=== PATIENT | female | born 1995 | race Caucasian/White ===

== ENCOUNTER 2018-09-29 11:16 | Outpatient (CLI) | payer OTHER ==
[2018-09-29 12:15] LABS: ADD MAN DIFF? NO
[2018-09-29 12:17] LABS: WHITE BLOOD COUNT 8.1 10^3/ul (4.8-10.8)
[2018-09-29 12:17] LABS: BASOPHILS % 0.1 % (0.0-2.0); EOSINOPHILS # 0.4 10^3/ul (0.0-0.5); EOSINOPHILS % 4.4 % (0.0-7.0); HEMATOCRIT 35.1 % (37.0-47.0); HEMOGLOBIN 11.9 g/dl (12.0-16.0); LYMPHOCYTES # 1.9 10^3/ul (0.8-2.9); LYMPHOCYTES % 23.1 % (15.0-51.0); MEAN CORPUSCULAR HEMOGLOBIN 28.5 pg (29.0-33.0); MEAN CORPUSCULAR HGB CONC 33.9 g/dl (32.0-37.0); MEAN PLATELET VOLUME 10.8 fl (7.4-10.4); MONOCYTE # 0.6 10^3/ul (0.3-0.9); MONOCYTES % 7.2 % (0.0-11.0); NEUTROPHIL # 5.3 10^3/ul (1.6-7.5); NEUTROPHILS % 64.7 % (39.0-77.0); PLATELET COUNT 269 10^3/UL (140-415); RED BLOOD COUNT 4.18 10^6/ul (4.20-5.40); RED CELL DISTRIBUTION WIDTH 13.4 % (11.5-14.5)
[2018-09-29 12:38] LABS: ALANINE AMINOTRANSFERASE 11 IU/L (13-69); ALBUMIN 3.4 g/dl (3.3-4.9); ALBUMIN/GLOBULIN RATIO 1.06; ALKALINE PHOSPHATASE 166 IU/L (42-121); ANION GAP 10 (5-13); ASPARTATE AMINO TRANSFERASE 17 IU/L (15-46); BILIRUBIN,INDIRECT 0.1 mg/dl (0-1.1); BILIRUBIN,TOTAL 0.1 mg/dl (0.2-1.3); BLOOD UREA NITROGEN 6 mg/dl (7-20); CALCIUM 9.3 mg/dl (8.4-10.2); CARBON DIOXIDE 20 mmol/L (21-31); CHLORIDE 109 mmol/L (97-110); Estimated GFR > 60 mL/min (>60); GLUCOSE 101 mg/dl (70-220); POTASSIUM 3.7 mmol/L (3.5-5.1); SODIUM 139 mmol/L (135-144); TOTAL PROTEIN 6.6 g/dl (6.1-8.1)
[2018-09-29 12:45] LABS: INR 0.85; PARTIAL THROMBOPLASTIN TIME 27.4 Sec (23.0-35.0); PROTIME 11.7 Sec (11.9-14.9); PT RATIO 0.9
[2018-09-29 12:46] LABS: ADD UMIC NO; UR ASCORBIC ACID NEGATIVE (NEGATIVE); UR BILIRUBIN (Dip) NEGATIVE (NEGATIVE); UR BLOOD (Dip) NEGATIVE (NEGATIVE); UR CLARITY CLEAR (CLEAR); UR COLOR COLORLESS (YELLOW); UR GLUCOSE (Dip) NEGATIVE (NEGATIVE); UR KETONES (Dip) NEGATIVE (NEGATIVE); UR LEUKOCYTE ESTERASE (Dip) NEGATIVE Leu/ul (NEGATIVE); UR NITRITE (Dip) NEGATIVE (NEGATIVE); UR SPECIFIC GRAVITY (Dip) 1.001 (1.003-1.030); UR TOTAL PROTEIN (Dip) NEGATIVE (NEGATIVE); UR UROBILINOGEN (Dip) NEGATIVE (NEGATIVE)
== END 2018-09-29 13:25 | disposition home or self-care (01) ==
LOC: OBT 11:16 → L-D 11:17 → OBT 13:25
DX: O13.3 Gestational [pregnancy-induced] hypertension without significant proteinuria, third trimester (principal); O36.8130 Decreased fetal movements, third trimester, not applicable or unspecified; Z3A.35 35 weeks gestation of pregnancy
CPT/HCPCS: 76818; 80053; 81003; 84560; 85025; 85384; 85610; 85730

== ENCOUNTER 2018-10-12 16:05 | Inpatient (IN) | payer OTHER ==
[2018-10-12 17:28] LABS: ADD MAN DIFF? NO
[2018-10-12 17:30] LABS: BASOPHILS % 0.2 % (0.0-2.0); EOSINOPHILS # 0.2 10^3/ul (0.0-0.5); HEMATOCRIT 35.7 % (37.0-47.0); HEMOGLOBIN 11.6 g/dl (12.0-16.0); LYMPHOCYTES % 22.4 % (15.0-51.0); MEAN CORPUSCULAR HGB CONC 32.5 g/dl (32.0-37.0); MEAN PLATELET VOLUME 11.1 fl (7.4-10.4); MONOCYTE # 0.7 10^3/ul (0.3-0.9); MONOCYTES % 7.6 % (0.0-11.0); NEUTROPHIL # 5.9 10^3/ul (1.6-7.5); NEUTROPHILS % 67.3 % (39.0-77.0); PLATELET COUNT 244 10^3/UL (140-415); RED BLOOD COUNT 4.15 10^6/ul (4.20-5.40); RED CELL DISTRIBUTION WIDTH 13.7 % (11.5-14.5)
[2018-10-12 17:30] LABS: WHITE BLOOD COUNT 8.8 10^3/ul (4.8-10.8)
[2018-10-12 17:47] LABS: ALANINE AMINOTRANSFERASE < 6 IU/L (13-69); ALBUMIN 3.6 g/dl (3.3-4.9); ALBUMIN/GLOBULIN RATIO 1.09; ALKALINE PHOSPHATASE 180 IU/L (42-121); ANION GAP 14 (5-13); ASPARTATE AMINO TRANSFERASE 16 IU/L (15-46); BILIRUBIN,INDIRECT 0.1 mg/dl (0-1.1); BILIRUBIN,TOTAL 0.1 mg/dl (0.2-1.3); BLOOD UREA NITROGEN 8 mg/dl (7-20); CALCIUM 9.1 mg/dl (8.4-10.2); CARBON DIOXIDE 20 mmol/L (21-31); CHLORIDE 105 mmol/L (97-110); CREATININE 0.48 mg/dl (0.44-1.00); Estimated GFR > 60 mL/min (>60); GLUCOSE 100 mg/dl (70-220); POTASSIUM 3.8 mmol/L (3.5-5.1); SODIUM 139 mmol/L (135-144); TOTAL PROTEIN 6.9 g/dl (6.1-8.1); URIC ACID 4.2 mg/dl (3.1-7.9)
[2018-10-12 17:49] LABS: INR 0.78; PT RATIO 0.9
[2018-10-12 17:50] LABS: PARTIAL THROMBOPLASTIN TIME 24.1 Sec (23.0-35.0)
[2018-10-12 17:59] LABS: ADD UMIC NO; UR ASCORBIC ACID NEGATIVE (NEGATIVE); UR BILIRUBIN (Dip) NEGATIVE (NEGATIVE); UR BLOOD (Dip) NEGATIVE (NEGATIVE); UR CLARITY CLEAR (CLEAR); UR COLOR YELLOW (YELLOW); UR GLUCOSE (Dip) NEGATIVE (NEGATIVE); UR KETONES (Dip) NEGATIVE (NEGATIVE); UR LEUKOCYTE ESTERASE (Dip) NEGATIVE Leu/ul (NEGATIVE); UR NITRITE (Dip) NEGATIVE (NEGATIVE); UR SPECIFIC GRAVITY (Dip) 1.009 (1.003-1.030); UR TOTAL PROTEIN (Dip) NEGATIVE (NEGATIVE); UR UROBILINOGEN (Dip) NEGATIVE (NEGATIVE)
[2018-10-12] MEDS ORDERED: CARBOPROST 250 MCG INJ IM (20:30)
[2018-10-12] MEDS ORDERED: MISOPROSTOL 50 MCG CAPSULE VAG (20:30)
[2018-10-12] MEDS ORDERED: IBUPROFEN 600 MG TAB PO (20:30)
[2018-10-12] MEDS ORDERED: MISOPROSTOL 200 MCG TAB PR (20:30)
[2018-10-12] MEDS ORDERED: OXYTOCIN 30 UNITS/LR 500 ML IV ×2 (20:30)
[2018-10-12] MEDS ORDERED: METHYLERGONOVINE 0.2 MG INJ IM (20:30)
[2018-10-12] MEDS ORDERED: BUTORPHANOL 2 MG INJ IV (20:30)
[2018-10-12] MEDS: LACTATED RINGER'S 1,000 ML IV (20:45)
[2018-10-12 21:11] LABS: HEPATITIS B SURFACE ANTIGEN NEGATIVE (NEGATIVE)
[2018-10-13] MEDS: MISOPROSTOL 50 MCG CAPSULE PO ×5 (00:19→20:31)
[2018-10-13] MEDS: AMPICILLIN 2 GM/NS (PMX) 100 ML IV (00:22)
[2018-10-13] MEDS ORDERED: AMPICILLIN 1 GM/NS (PMX) 50 ML IV (00:30)
[2018-10-13] MEDS: AMPICILLIN 1 GM/NS (PMX) 50 ML IV ×5 (04:28→20:31)
[2018-10-13] MEDS: LACTATED RINGER'S 1,000 ML IV ×2 (06:27→15:46)
[2018-10-13 22:08] LABS: RAPID PLASMA REAGIN NONREACTIVE (NR)
[2018-10-14] MEDS: AMPICILLIN 1 GM/NS (PMX) 50 ML IV ×6 (00:27→20:54)
[2018-10-14] MEDS: LACTATED RINGER'S 1,000 ML IV ×5 (00:27→20:25)
[2018-10-14] MEDS: MISOPROSTOL 50 MCG CAPSULE PO (00:27)
[2018-10-14] MEDS: OXYTOCIN 30 UNITS/LR 500 ML IV (08:47)
[2018-10-14] MEDS ORDERED: ROPIVACAINE 0.2% 100 ML (21:31)
[2018-10-15] MEDS: LACTATED RINGER'S 1,000 ML IV ×2 (00:26→06:02)
[2018-10-15] MEDS: AMPICILLIN 1 GM/NS (PMX) 50 ML IV ×3 (00:26→08:16)
[2018-10-15] MEDS: ROPIVACAINE 0.2% 100 ML INJ EPI (04:43)
[2018-10-15] MEDS: GENTAMICIN 120 MG/NS (PMX) 100 ML IVPB ×2 (09:56→10:00)
[2018-10-15] MEDS: OXYTOCIN 30 UNITS/LR 500 ML IV ×2 (10:15→13:41)
[2018-10-15] MEDS ORDERED: DIBUCAINE 1% 30 GM OINT TOP (11:00)
[2018-10-15] MEDS ORDERED: ONDANSETRON 4 MG INJ IV (11:00)
[2018-10-15] MEDS ORDERED: CARBOPROST 250 MCG INJ IM (11:00)
[2018-10-15] MEDS ORDERED: METHYLERGONOVINE 0.2 MG INJ IM (11:00)
[2018-10-15] MEDS ORDERED: OXYTOCIN 30 UNITS/LR 500 ML IV (11:00)
[2018-10-15] MEDS ORDERED: MISOPROSTOL 200 MCG TAB PR (11:00)
[2018-10-15] MEDS ORDERED: ACETAMINOPHEN 325 MG TAB PO (11:00)
[2018-10-15] MEDS ORDERED: MAGNESIUM HYDROXIDE 30ML CUP PO (11:00)
[2018-10-15] MEDS: LIDOCAINE 1% (MPF) 30 ML INJ INJ (11:49)
[2018-10-15] MEDS: LACTATED RINGER'S 1,000 ML IV* ×2 (12:20→18:54)
[2018-10-15] MEDS: IBUPROFEN 600 MG TAB PO ×2 (13:33→21:47)
[2018-10-15] MEDS: LANOLIN HPA 1 PKT TOP (13:35)
[2018-10-15] MEDS: BENZOCAINE 20% 56 ML SPRAY TOP (13:35)
[2018-10-15] MEDS: WITCH HAZEL/GLYCERIN PAD PR (13:35)
[2018-10-15] MEDS: CEFAZOLIN 1 GM/50 ML (PMX) 50 ML IVPB ×2 (13:39→21:48)
[2018-10-16] MEDS: CEFAZOLIN 1 GM/50 ML (PMX) 50 ML IVPB (05:41)
[2018-10-16] MEDS: LACTATED RINGER'S 1,000 ML IV* (05:41)
[2018-10-16] MEDS: IBUPROFEN 600 MG TAB PO ×4 (05:41→23:33)
[2018-10-16 08:25] LABS: ADD MAN DIFF? NO
[2018-10-16 08:31] LABS: WHITE BLOOD COUNT 11.2 10^3/ul (4.8-10.8)
[2018-10-16 08:31] LABS: BASOPHILS % 0.2 % (0.0-2.0); EOSINOPHILS # 0.2 10^3/ul (0.0-0.5); EOSINOPHILS % 1.4 % (0.0-7.0); HEMATOCRIT 34.8 % (37.0-47.0); HEMOGLOBIN 11.5 g/dl (12.0-16.0); LYMPHOCYTES # 1.9 10^3/ul (0.8-2.9); LYMPHOCYTES % 16.8 % (15.0-51.0); MEAN CORPUSCULAR HEMOGLOBIN 28.4 pg (29.0-33.0); MEAN CORPUSCULAR VOLUME 85.9 fl (82.0-101.0); MEAN PLATELET VOLUME 11.4 fl (7.4-10.4); MONOCYTE # 0.9 10^3/ul (0.3-0.9); MONOCYTES % 7.9 % (0.0-11.0); NEUTROPHIL # 8.2 10^3/ul (1.6-7.5); NEUTROPHILS % 73.1 % (39.0-77.0); PLATELET COUNT 211 10^3/UL (140-415); RED BLOOD COUNT 4.05 10^6/ul (4.20-5.40)
[2018-10-16] MEDS: SENNA/DOCUSATE NA (8.6MG/50MG) TAB PO (10:04)
[2018-10-16] MEDS: ACETAMINOPHEN 325 MG TAB PO (13:24)
[2018-10-16] MEDS: LANOLIN HPA 1 PKT TOP (13:30)
[2018-10-17] MEDS: IBUPROFEN 600 MG TAB PO ×2 (05:28→11:45)
[2018-10-17] MEDS: LANOLIN HPA 1 PKT TOP (11:45)
== END 2018-10-17 17:00 | disposition home or self-care (01) | DRG 807 ==
LOC: OBT 16:05 → PP1 10-15 13:10 → L-D 16:06 → OBT 19:44 → L-D 19:44
PROC: 10E0XZZ Delivery of Products of Conception, External Approach (ICD-10-PCS; principal; 2018-10-12)
PROC: 0W8NXZZ Division of Female Perineum, External Approach (ICD-10-PCS; 2018-10-12)
DX: O13.4 Gestational [pregnancy-induced] hypertension without significant proteinuria, complicating childbirth (principal); O69.1XX0 Labor and delivery complicated by cord around neck, with compression, not applicable or unspecified; O99.824 Streptococcus B carrier state complicating childbirth; Z3A.37 37 weeks gestation of pregnancy; Z37.0 Single live birth
CPT/HCPCS: 62319; 76815; 76818; 80053; 81003; 84560; 85025; 85610; 85730; 86592; 86850; 86900; 86901; 87340; 88307; 99464